=== PATIENT | male | born 1980 | race Caucasian/White ===

== ENCOUNTER 2017-06-03 19:50 | Emergency (ER) | payer BC ==
[2017-06-03 20:55] VITALS: BP 138/79
[2017-06-03] MEDS ORDERED: methylPREDNISolone 125 MG* 2 ML VIAL IM ONE (21:01)
[2017-06-03] MEDS ORDERED: diPHENhydraMINE PO* 50 MG PO ONE (21:02)
--- NOTE | 2017-06-03 21:09 | UC ---
Allergic Reaction HPI - HPI Summary HPI Summary: Pt c/o sudden onset of erythematous, itchy, "rash", lip swelling, tongue swelling that began last evening. Pt states that he ate lobster and steak last but does not have known allergy to either food. Pt states that he has been taking 50 mg PO bendaryl last night this morning at 0830 and this afternoon at 1500 with some improvement. - History of Current Complaint Chief Complaint: UCSkin Stated Complaint: SKIN COMPLAINT Time Seen by Provider: 06/03/17 20:45 Hx Obtained From: Patient Onset/Duration: Sudden Onset, Lasting Hours Severity Initially: Moderate Severity Currently: Mild Location: Diffuse Character: Swelling, Hives Aggravating Factor(s): Nothing Alleviating Factor(s): Antihistamines Associated Signs And Symptoms: Positive: Rash - Allergies/Home Medications Allergies/Adverse Reactions: Allergies Allergy/AdvReac Type Severity Reaction Status Date / Time No Known Allergies Allergy Verified 06/03/17 20:47 Home Medications: Home Medications metFORMIN* [Glucophage 500 MG TAB *] 500 mg BID 06/03/17 [History Confirmed ] PMH/Surg Hx/FS Hx/Imm Hx Previously Healthy: Yes - Surgical History Surgical History: Yes Surgery Procedure, Year, and Place: NOSE SX - Family History Known Family History: Positive: Cardiac Disease - Social History Lives: With Family Alcohol Use: Occasionally Substance Use Type: None Smoking Status (MU): Current Every Day Smoker Type: Cigarettes Amount Used/How Often: 1 pack daily Have You Smoked in the Last Year: Yes - Immunization History Most Recent Influenza Vaccination: 2017 Review of Systems Constitutional: Negative Skin: Rash Eyes: Negative ENT: Other - upper lip swelling, difficulty swallowing Respiratory: Negative Cardiovascular: Negative Gastrointestinal: Negative Genitourinary: Negative Motor: Negative Neurovascular: Negative Musculoskeletal: Negative Neurological: Negative Psychological: Negative Is Patient Immunocompromised?: No All Other Systems Reviewed And Are Negative: Yes Physical Exam Triage Information Reviewed: Yes Appearance: Well-Appearing Vital Signs: Initial Vital Signs Temp 97.3 F 06/03/17 20:49 Pulse 89 06/03/17 20:49 Resp 17 06/03/17 20:49 BP 138/79 06/03/17 20:49 Pulse Ox 99 06/03/17 20:49 Vital Signs Reviewed: Yes Eye Exam: Normal ENT Exam: Other ENT: Positive: Other - left side, upper lip swelling Dental Exam: Normal Neck exam: Normal Respiratory Exam: Normal Cardiovascular Exam: Normal Abdominal Exam: Normal Musculoskeletal Exam: Normal Neurological Exam: Normal Psychological Exam: Normal Skin Exam: Other - diffuse urticaria, upper extremities, upper torso Allergic Reaction Course/Dx - Differential Dx/Diagnosis Differential Diagnosis/HQI/PQRI: Angioedema, Local Allergic Reaction, Urticaria Provider Diagnoses: generalized allergic reaction. allergen unknown Discharge - Discharge Plan Condition: Stable Disposition: HOME Prescriptions: Cetirizine* [ZyrTEC 10 MG TAB*] 10 mg PO DAILY #5 tab predniSONE TAB* [Deltasone TAB*] 30 mg PO DAILY #9 tab Patient Education Materials: General Allergic Reaction (ED) Referrals: JEANETTE Gao [Primary Care Provider] - Additional Instructions: Please follow up with your PCP or return to clinic as needed. Please take OTC benadryl (diphenhydramine) as needed to manage symptoms. If symptoms worsen please seek care at the closest Emergency Room immediately.
== END 2017-06-03 21:28 | disposition home or self-care (01) ==
LOC: UCCORT 19:50
DX: T78.40XA Allergy, unspecified, initial encounter (principal); X58.XXXA Exposure to other specified factors, initial encounter; Z72.0 Tobacco use; Z72.89 Other problems related to lifestyle
CPT/HCPCS: 96372; 99212; A9270-GY; G0463; J2930

== ENCOUNTER 2017-09-17 17:41 | Emergency (ER) | payer BC ==
[2017-09-17 20:00] VITALS: BP 142/84
--- NOTE | 2017-09-17 20:44 | UC ---
UC General HPI - HPI Summary HPI Summary: pt is c/o lower abdominal pain with episodes of diarrhea, nausea and vomiting once last pm. no travel hx or recent antibiotic use and no blood in stool. 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 - History of Current Complaint Hx Obtained From: Patient Pain Intensity: 8 Aggravating: food Alleviating: nothing Associated Signs & Symptoms: Positive: Abdominal Pain, Diarrhea, Nausea, Vomiting <Yamini Weiner - Last Filed: 09/17/17 20:47> <Blaire Wright - Last Filed: 09/17/17 21:49> - History of Current Complaint Chief Complaint: UCGI Stated Complaint: EMESIS Time Seen by Provider: 09/17/17 20:30 - Allergy/Home Medications Allergies/Adverse Reactions: Allergies Allergy/AdvReac Type Severity Reaction Status Date / Time No Known Allergies Allergy Verified 09/17/17 20:00 PMH/Surg Hx/FS Hx/Imm Hx - Additional Past Medical History Additional PMH: Cluster CLAYTON's, Borderline diabetes Endocrine History: Dyslipidemia - Surgical History Surgical History: Yes Surgery Procedure, Year, and Place: NOSE SX. right rotator cuff repair - Family History Known Family History: Positive: Cardiac Disease - Social History Occupation: Employed Full-time Alcohol Use: Rare Substance Use Type: None Smoking Status (MU): Heavy Every Day Tobacco Smoker Type: Cigarettes Amount Used/How Often: 1 pack daily Have You Smoked in the Last Year: Yes - Immunization History Most Recent Influenza Vaccination: 2017 Vaccination Up to Date: Yes <Yamini Weiner - Last Filed: 09/17/17 20:47> Review of Systems Constitutional: Negative Skin: Negative Eyes: Negative ENT: Negative Respiratory: Negative Cardiovascular: Negative Gastrointestinal: Abdominal Pain, Vomiting, Diarrhea, Nausea Genitourinary: Negative Motor: Weakness Neurovascular: Negative Musculoskeletal: Negative Neurological: Negative Psychological: Negative Is Patient Immunocompromised?: No All Other Systems Reviewed And Are Negative: Yes <Yamini Weiner - Last Filed: 09/17/17 20:47> Physical Exam Triage Information Reviewed: Yes Appearance: Ill-Appearing Vital Signs: Initial Vital Signs Temp 98.7 F 09/17/17 19:54 Pulse 117 09/17/17 19:54 Resp 16 09/17/17 19:54 BP 142/84 09/17/17 19:54 Pulse Ox 97 09/17/17 19:54 Vital Signs Reviewed: Yes Eyes: Positive: Conjunctiva Clear ENT: Positive: Pharynx normal, TMs normal. Negative: Nasal congestion, Nasal drainage Neck: Positive: Supple, Nontender, No Lymphadenopathy Respiratory: Positive: Lungs clear, Normal breath sounds Cardiovascular: Positive: RRR, No Murmur Abdomen Description: Positive: No Organomegaly, Soft, Guarding - RLQ. Negative : CVA Tenderness (R), CVA Tenderness (L), Distended Bowel Sounds: Positive: Hyperactive Musculoskeletal: Positive: ROM Intact Neurological: Positive: Alert Psychological: Positive: Age Appropriate Behavior Skin Exam: Normal <Yamiin Weiner - Last Filed: 09/17/17 20:47> Vital Signs: Initial Vital Signs Temp 98.7 F 09/17/17 19:54 Pulse 117 09/17/17 19:54 Resp 16 09/17/17 19:54 BP 142/84 09/17/17 19:54 Pulse Ox 97 09/17/17 19:54 <Blaire Wright - Last Filed: 09/17/17 21:49> Diagnostics - Laboratory Diagnostic Studies Completed/Ordered: stool culture, O&P are pending. <Yamini Weiner - Last Filed: 09/17/17 20:47> Course/Dx - Course Course Of Treatment: hx raises concern for viral or possible parasite or bacterial diarrhea; however, on exam he has RLQ pain thus will need to exclude appendicitis. no risk for c-diff. 20:48, [facility] ER called. report given to Kami Lara NP advised of hx and PE with RLQ pain-concern for appendicitis - Differential Dx - Multi-Symptom Provider Diagnoses: RLQ pain, diarrhea <Yamini Weiner - Last Filed: 09/17/17 20:47> Discharge - Sign-Out/Discharge Documenting (check all that apply): Discharge - Billing Disposition and Condition Condition: STABLE Disposition: EMTELADIO <Yamini Weiner - Last Filed: 09/17/17 20:47> - Billing Disposition and Condition Condition: STABLE Disposition: EMTALA <Blaire Wright - Last Filed: 09/17/17 21:49> - Discharge Plan Condition: Stable Disposition: [facility] Referrals: JEANETTE Gao [Primary Care Provider] - Additional Instructions: GO DIRECTLY TO THE [facility] RO[facility] WHEN YOU LEAVE HERE DISCUSSED. DO NOT EAT OR DRINK AFTER YOU LEAVE HERE. Attestation Statement User Type: Provider - I was available for consult. This patient was seen by the GILBERTO. The patient was not presented to, seen by, or examined by me. -Leah <Blaire Wright - Last Filed: 09/17/17 21:49>
== END 2017-09-17 21:09 | disposition short-term general hospital (02) ==
LOC: UCCORT 17:41
DX: R10.31 Right lower quadrant pain (principal); R19.7 Diarrhea, unspecified; F17.210 Nicotine dependence, cigarettes, uncomplicated
CPT/HCPCS: 87045; 87046; 87177; 87209; 87328; 87329; 87899; 99212; G0463

== ENCOUNTER 2018-11-30 09:39 | Emergency (ER) | payer BC ==
[2018-11-30 10:08] VITALS: BP 141/81
--- NOTE | 2018-11-30 10:13 | UC ---
General HPI - HPI Summary HPI Summary: tripped and FOOSH(L) last pm. c/o L wrist pain. +swelling. - History of Current Complaint Chief Complaint: UCUpperExtremity Stated Complaint: LEFT HAND INJURY Time Seen by Provider: 11/30/18 10:07 Hx Obtained From: Patient Onset/Duration: Sudden Onset Timing: Constant Pain Intensity: 8 Aggravating: movement Associated Signs & Symptoms: Positive: Edema - L wrist. Negative: Fever, Weakness - Allergy/Home Medications Allergies/Adverse Reactions: Allergies Allergy/AdvReac Type Severity Reaction Status Date / Time No Known Allergies Allergy Verified 11/30/18 10:00 Home Medications: Home Medications Ibuprofen TAB* [Advil TAB*] 1,000 mg PO Q6H PRN 11/30/18 [History Confirmed ] PMH/Surg Hx/FS Hx/Imm Hx - Additional Past Medical History Additional PMH: cluster CLAYTON's Endocrine History: Diabetes, Dyslipidemia GI/ History: Gastroesophageal Reflux Psychological History: Depression - Surgical History Surgical History: Yes Surgery Procedure, Year, and Place: NOSE SX. right rotator cuff repair - Family History Known Family History: Positive: Cardiac Disease, Non-Contributory - Social History Alcohol Use: Occasionally Substance Use Type: None Smoking Status (MU): Heavy Every Day Tobacco Smoker Type: Cigarettes Amount Used/How Often: 1 pack daily Have You Smoked in the Last Year: Yes Household Exposure Type: Cigarettes - Immunization History Most Recent Influenza Vaccination: 2017 Vaccination Up to Date: Yes Review of Systems All Other Systems Reviewed And Are Negative: No Constitutional: Negative: Fever Motor: Positive: Decreased ROM - L wrist Musculoskeletal: Positive: Edema - L wrist Neurological: Negative: Weakness, Paresthesia, Numbness Physical Exam Triage Information Reviewed: Yes Appearance: Well-Appearing Vital Signs: Initial Vital Signs Temp 98.5 F 11/30/18 10:03 Pulse 82 11/30/18 10:03 Resp 16 11/30/18 10:03 BP 141/81 11/30/18 10:03 Pulse Ox 97 11/30/18 10:03 Vital Signs Reviewed: Yes Eyes: Positive: Conjunctiva Clear Respiratory: Positive: No respiratory distress Cardiovascular: Positive: RRR Musculoskeletal: Positive: Other: - LUE: shoulder, elbow and hand are non tender. wrist has dorsal swelling and generalized tenderness, snuff box +/-. hand has full s/v/m function. Neurological: Positive: Alert Psychological: Positive: Age Appropriate Behavior Skin Exam: Normal Diagnostics - Radiology No standard instances Radiology Interpretation Completed By: Radiologist - IMPRESSION: Question fracture waist of the scaphoid. Clinical correlation is suggested. Course/Dx - Course Course Of Treatment: pain medication declined. NON DISPLACED L NAVICULAR FX. PREFAB SPLINT APPLIED BY NURSING. - Diagnoses Provider Diagnosis: Left carpal navicular fracture Discharge - Sign-Out/Discharge Documenting (check all that apply): Patient Departure All imaging exams completed and their final reports reviewed: Yes - Discharge Plan Condition: Stable Disposition: HOME Patient Education Materials: Scaphoid Fracture (ED), Splint Care (ED) Forms: *Work Release Referrals: Morteza Haney MD [Medical Doctor] - As Soon As Possible Additional Instructions: keep splint on and dry at all times until cleared by orthopedics. - Billing Disposition and Condition Condition: STABLE Disposition: Home
== END 2018-11-30 11:04 | disposition home or self-care (01) ==
LOC: UCCORT 09:39
DX: S92.255A Nondisplaced fracture of navicular [scaphoid] of left foot, initial encounter for closed fracture (principal); W01.0XXA Fall on same level from slipping, tripping and stumbling without subsequent striking against object, initial encounter; Y93.01 Activity, walking, marching and hiking; Y92.89 Other specified places as the place of occurrence of the external cause; E11.9 Type 2 diabetes mellitus without complications; E78.5 Hyperlipidemia, unspecified; K21.9 Gastro-esophageal reflux disease without esophagitis; F17.210 Nicotine dependence, cigarettes, uncomplicated
CPT/HCPCS: 99212; G0463

== ENCOUNTER 2019-04-16 10:11 | Emergency (ER) | payer BC ==
[2019-04-16 10:39] VITALS: BP 141/83
--- NOTE | 2019-04-16 10:52 | UC ---
Skin Complaint HPI - HPI Summary HPI Summary: 39 y/o male presents to the urgent care c/o red,raised painful pustule under R axilla area that he noticed 1.5 weeks ago. Pt reports he has never had something like this in the past. He states he shaved his axilla and then he noticed a small painful pimple that has worse w/ time. Pt has not taken any medication to alleviate symptoms. Pain is 2/10. Pt denies fever, drainage, SOB, chest pain, Rt arm pain or numbness, dizziness, SOB, chest pain, abdominal pain , N/V/D. No Hx of MRSA - History of Current Complaint Chief Complaint: UCSkin Time Seen by Provider: 04/16/19 10:45 Stated Complaint: GROWTH UNDER RT ARM Hx Obtained From: Patient Onset/Duration: Gradual Onset, Lasting Weeks - 1.5 weeks, Still Present, Worse Since - 2 days ago Skin Exposure Onset/Duration: Weeks Ago - 1.5 weeks Timing: Constant Onset Severity: Mild Current Severity: Moderate Pain Intensity: 2 Pain Scale Used: 0-10 Numeric Location: Discrete - under rt axilla painful pustule Character: Swelling, Pain, Redness, Raised Aggravating Factor(s): Touch Alleviating Factor(s): Nothing Associated Signs & Symptoms: Positive: Rash - under rt axilla painful pustule, Tenderness. Negative: Fever, Chills, Drainage Related History: Other: - shaving axilla - Allergy/Home Medications Allergies/Adverse Reactions: Allergies Allergy/AdvReac Type Severity Reaction Status Date / Time No Known Allergies Allergy Verified 04/18/19 13:05 Home Medications: Home Medications Atorvastatin* [Lipitor 40 MG*] 40 mg PO QPM 04/16/19 [History Confirmed 04/16/19 ] Gabapentin CAP(*) [Neurontin 300 CAP(*)] 300 mg PO BID 04/16/19 [History Confirmed 04/16/19] Verapamil TAB* [Calan TAB*] 240 mg PO BEDTIME 04/16/19 [History Confirmed ] PMH/Surg Hx/FS Hx/Imm Hx Previously Healthy: Yes Cardiovascular History: Hypertension - Surgical History Surgical History: Yes Surgery Procedure, Year, and Place: NOSE SX. right rotator cuff repair - Family History Known Family History: Positive: Cardiac Disease, Non-Contributory - Social History Occupation: Employed Full-time Lives: With Family Alcohol Use: Occasionally Substance Use Type: None Smoking Status (MU): Heavy Every Day Tobacco Smoker Type: Cigarettes Amount Used/How Often: 1 pack daily Have You Smoked in the Last Year: Yes Household Exposure Type: Cigarettes - Immunization History Most Recent Influenza Vaccination: 2017 Vaccination Up to Date: Yes Review of Systems All Other Systems Reviewed And Are Negative: Yes Constitutional: Positive: Negative Skin: Positive: Rash - under rt axilla painful pustule Eyes: Positive: Negative ENT: Positive: Negative Respiratory: Positive: Negative Cardiovascular: Positive: Negative Gastrointestinal: Positive: Negative Motor: Positive: Negative Neurovascular: Positive: Negative Musculoskeletal: Positive: Negative Neurological: Positive: Negative Psychological: Positive: Negative Is Patient Immunocompromised?: No Physical Exam - Summary Physical Exam Summary: Vital Signs Reviewed: Yes General: well developed, well nourished male sitting in the examining table w/o any apparent distress Eye Exam: Normal Eyes: Positive: Conjunctiva Clear - PERRLA, EOMI, fundi grossly normal ENT: Positive: Normal ENT inspection, Hearing grossly normal, Pharynx normal, TMs normal Neck: Positive: Supple, Nontender, No Lymphadenopathy Respiratory: Positive: Chest non-tender, Lungs clear, Normal breath sounds, No respiratory distress Cardiovascular: Positive: RRR, No Murmur, Pulses Normal, Brisk Capillary Refill Abdomen Description: Positive: Nontender, No Organomegaly, Soft. Negative: CVA Tenderness (R), CVA Tenderness (L) Bowel Sounds: Positive: Present Musculoskeletal: Positive: Strength Intact, ROM Intact, No Edema Neurological: Positive: Alert, Muscle Tone Normal Psychological Exam: Normal Skin: Positive: RT axilla w/ an erythematous pustule that is indurated and fluctuant, tender to palpation, swollen, and warm to touch about 4cm x 3 cm in size. FROM of RT arm and shoulder, sensation is intact, capillary refill WNL, reflexes WNL Triage Information Reviewed: Yes Vital Signs: Initial Vital Signs Temp 98.4 F 04/16/19 10:35 Pulse 83 04/16/19 10:35 Resp 16 04/16/19 10:35 BP 141/83 04/16/19 10:35 Pulse Ox 97 04/16/19 10:35 Course/Dx - Course Course Of Treatment: 39 y/o male presents to the urgent care c/o red,raised painful pustule under R axilla area that he noticed 1.5 weeks ago. Pt reports he has never had something like this in the past. He states he shaved his axilla and then he noticed a small painful pimple that has worse w/ time. Pt has not taken any medication to alleviate symptoms. Pain is 2/10. Pt denies fever, drainage, SOB, chest pain, Rt arm pain or numbness, dizziness, SOB, chest pain, abdominal pain , N/V/D. No Hx of MRSA.Hx obtained. Pt w/RT axilla w/ an erythematous pustule that is indurated and fluctuant, tender to palpation, swollen, and warm to touch about 4cm x 3 cm in size. FROM of RT arm and shoulder, sensation is intact , capillary refill WNL, reflexes WNL on examination.I&D of abscess procedure: The procedure was explained and consent obtained. [place] protocol performed. The wound was anesthetized with 4mL of Lido/epi 2% with good anesthesia. Sterile drape and prep were done. The fluctuant center was incised with #11 blade scalpel. A moderate amount of caseous material was expressed . wound cultures obtained and sent to lab top r/o MRSA. The wound was probed for loculated areas and irrigated with normal saline. The wound was packed loosely with wick or left open. Bacitracin topical ointment applied and wound covered with sterile dressing. The patient tolerated the procedure well. Pt Rx Keflex PO and ibuprofen PO for pain. Advised to return to the urgent care for wound check up in 2 days. Pt advised fever develops and pain increase despite ABX to go immediately to the ER for further management. Pt's BP is elevated today advised to decrease salt in diet, monitor BP and f/u with PCP for further management. Pt understood and agreed with D/C instructions. Left the clinic ambulating A&OX3. - Differential Diagnoses - Skin Complaint Differential Diagnoses: Abscess, Cellulitis, Contact Dermatitis, Lymphadenitis, MRSA - Diagnoses Provider Diagnosis: Abscess of right axilla, Uncontrolled hypertension Discharge ED - Sign-Out/Discharge Documenting (check all that apply): Patient Departure - d/C home All imaging exams completed and their final reports reviewed: No Studies - Discharge Plan Condition: Stable Disposition: HOME Prescriptions: Bacitracin OINTMENT* 1 applic TOPICAL BID #1 tube Cephalexin CAP* [Keflex CAP*] 500 mg PO QID #28 cap Patient Education Materials: Abscess (ED) Referrals: Dominique Bennett NP [Primary Care Provider] - 2 Days Additional Instructions: 1-Please take full course of antibiotic to avoid resistance. Keep wound clean and dry with a sterile dressing. Apply bacitracin topical as directed 2- F/u wound check up in 2 days with your PCP or at the urgent care for removal of packing 3-. Take Ibuprofen PO q6-8hrs prn for pain or swelling. 4-If you develop fever or redness despite antibiotic please go to the ER immediately or return to the Urgent care. 5- Wound culture sent to lab, if any abnormal result you will receive a call from us. 6-Your BP is elevated today. please decrease salt in your diet, monitor BP and if it continues to be elevated please f/u with your PCP for further management. - Billing Disposition and Condition Condition: STABLE Disposition: Home - Attestation Statements Provider Attestation: Per institutional requirements, I have reviewed the chart, however, I was not consulted specifically or made aware of this patient by the midlevel provider. I did not personally evaluate, interact with , or disposition this patient.
[2019-04-16] MEDS ORDERED: Lidocaine 1% MPF ** 5 ML VIAL INJ ONE (11:39)
--- NOTE | 2019-04-17 09:08 | UC ---
- Progress Note Progress Note: Lab report reviewed preliminary wound culture: Staph aureus positive, MRSA negative Patient on Keflex and Bactroban No change in plan, await final culture sensitivity report. Course/Dx - Diagnoses Provider Diagnoses: Abscess of right axilla, Uncontrolled hypertension Discharge ED - Sign-Out/Discharge Documenting (check all that apply): Post-Discharge Follow Up All imaging exams completed and their final reports reviewed: No Studies - Discharge Plan Condition: Stable Disposition: HOME Prescriptions: Bacitracin OINTMENT* 1 applic TOPICAL BID #1 tube Cephalexin CAP* [Keflex CAP*] 500 mg PO QID #28 cap Patient Education Materials: Abscess (ED) Referrals: Dominique Benentt NP [Primary Care Provider] - 2 Days Additional Instructions: 1-Please take full course of antibiotic to avoid resistance. Keep wound clean and dry with a sterile dressing. Apply bacitracin topical as directed 2- F/u wound check up in 2 days with your PCP or at the urgent care for removal of packing 3-. Take Ibuprofen PO q6-8hrs prn for pain or swelling. 4-If you develop fever or redness despite antibiotic please go to the ER immediately or return to the Urgent care. 5- Wound culture sent to lab, if any abnormal result you will receive a call from us. 6-Your BP is elevated today. please decrease salt in your diet, monitor BP and if it continues to be elevated please f/u with your PCP for further management. - Billing Disposition and Condition Condition: STABLE Disposition: Home
== END 2019-04-16 12:27 | disposition home or self-care (01) ==
LOC: UCCORT 10:11
DX: L02.411 Cutaneous abscess of right axilla (principal); B95.61 Methicillin susceptible Staphylococcus aureus infection as the cause of diseases classified elsewhere; I10 Essential (primary) hypertension; F17.210 Nicotine dependence, cigarettes, uncomplicated
CPT/HCPCS: 10060; 87070; 87077; 87186; 87205; 87640; 87641; 99212; G0463

== ENCOUNTER 2019-04-18 12:44 | Emergency (ER) | payer BC ==
[2019-04-18 13:05] VITALS: BP 149/87
--- NOTE | 2019-04-18 13:35 | UC ---
HPI Wound/Suture Re-check - HPI Summary HPI Summary: Pt presents for packing removal in right axilla. Pt had abscess incision and drainage done here on 04/16/19. Pt reports moderate amount of drainage since drainage, denies any worsening of redness or tenderness. - History Of Current Complaint Chief Complaint: UCSkin Stated Complaint: NEEDS PACKING REMOVED Time Seen by Provider: 04/18/19 13:04 Hx Obtained From: Patient Onset/Duration: Gradual Onset, Lasting Days, Still Present Severity: Mild Pain Intensity: 0 - Allergies/Home Medications Allergies/Adverse Reactions: Allergies Allergy/AdvReac Type Severity Reaction Status Date / Time No Known Allergies Allergy Verified 04/18/19 13:05 Home Medications: Home Medications PARoxetine HCl [Paxil] 30 mg PO BEDTIME 04/18/19 [History Confirmed 04/18/19] PMH/Surg Hx/FS Hx/Imm Hx Previously Healthy: Yes Endocrine History: Dyslipidemia Cardiovascular History: Hypertension Psychological History: Anxiety - Surgical History Surgical History: Yes Surgery Procedure, Year, and Place: NOSE SX. right rotator cuff repair - Family History Known Family History: Positive: Cardiac Disease, Non-Contributory - Social History Occupation: Employed Full-time Lives: With Family Alcohol Use: Occasionally Substance Use Type: None Smoking Status (MU): Heavy Every Day Tobacco Smoker Type: Cigarettes Amount Used/How Often: 1 pack daily Have You Smoked in the Last Year: Yes Household Exposure Type: Cigarettes - Immunization History Most Recent Influenza Vaccination: 2017 Vaccination Up to Date: Yes Review of Systems All Other Systems Reviewed And Are Negative: Yes Constitutional: Positive: Negative Skin: Positive: Other - incision in right axilla with packing still intact Eyes: Positive: Negative ENT: Positive: Negative Respiratory: Positive: Negative Cardiovascular: Positive: Negative Gastrointestinal: Positive: Negative Genitourinary: Positive: Negative Motor: Positive: Negative Neurovascular: Positive: Negative Musculoskeletal: Positive: Negative Neurological: Positive: Negative Psychological: Positive: Negative Is Patient Immunocompromised?: No Physical Exam Triage Information Reviewed: Yes Appearance: Well-Appearing Vital Signs: Initial Vital Signs Temp 98.2 F 04/18/19 13:01 Pulse 70 04/18/19 13:01 Resp 16 04/18/19 13:01 BP 149/87 04/18/19 13:01 Pulse Ox 99 04/18/19 13:01 Vital Signs Reviewed: Yes Eye Exam: Normal ENT Exam: Normal ENT: Positive: Hearing grossly normal Dental Exam: Normal Neck exam: Normal Respiratory: Positive: No respiratory distress Musculoskeletal Exam: Normal Neurological Exam: Normal Psychological Exam: Normal Skin Exam: Other - small wick for packing, intact in incision of right axilla. Firm, moveable mass in right axilla, no additional drainage expressed with pressure. Pt denied pain. NO worsening redness, Course/Dx - Differential Dx - Laceration/Wound Differential Diagnoses: Other - wound check, - Diagnosis Provider Diagnosis: Abscess packing removal Discharge ED - Sign-Out/Discharge Documenting (check all that apply): Patient Departure All imaging exams completed and their final reports reviewed: No Studies - Discharge Plan Condition: Stable Disposition: HOME Patient Education Materials: Abscess (ED), Warm Compress or Soak (ED) Referrals: Dominique Bennett NP [Primary Care Provider] - If Needed Lanre Ring [Medical Doctor] - If Needed Additional Instructions: Please follow up with your PCP as needed. We have provided you with a surgical recommendation for further follow up if needed. - Billing Disposition and Condition Condition: STABLE Disposition: Home
== END 2019-04-18 13:30 | disposition home or self-care (01) ==
LOC: UCCORT 12:44
DX: Z48.817 Encounter for surgical aftercare following surgery on the skin and subcutaneous tissue (principal); I10 Essential (primary) hypertension; F41.9 Anxiety disorder, unspecified; F17.210 Nicotine dependence, cigarettes, uncomplicated; Z79.899 Other long term (current) drug therapy
CPT/HCPCS: 99211; G0463